=== PATIENT | male | born 1985 | race Caucasian/White ===

== ENCOUNTER 2018-11-27 15:28 | Emergency (ER) | payer MEDICAID ==
[~2018-11-27] VITALS: Ht 177.8 cm; Wt 78.0 kg
[2018-11-27 15:28] VITALS: BP_SYST 149
--- NOTE | 2018-11-27 15:30 | NUR ---
BROUGHT BACK TO BED #4 AND TRIAGED. REPORT GIVEN TO BJ
--- NOTE | 2018-11-27 15:55 | NUR ---
patient arrived Aox[facility] from home with c/o pounding MYRICK x 5 days. patient states he has a high blood pressure and feels like he needs to relax more. 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 patient no other medical history provided. no other complaint or injury at this time.
--- NOTE | 2018-11-27 16:00 | NUR ---
patients labs were drawn.
--- NOTE | 2018-11-27 16:00 | NUR ---
ER at bedside examining patient.
[2018-11-27 17:10] LABS: HEMATOCRIT 48.7 % (36-54); HEMOGLOBIN 16.7 g/dL (14.0-18.0); LYMPHOCYTES % (AUTO) 35.3 % (20.5-51.5); MEAN CORPUSCULAR HEMOGLOBIN 30 pg (27-31); MEAN CORPUSCULAR HGB CONC 34 % (32-36); MEAN CORPUSCULAR VOLUME 87 fL (79.0-98.0); NEUTROPHILS % (AUTO) 54.7 % (40.0-70.0); PLATELET COUNT (AUTO) 241 K/uL (130-430); RED BLOOD CELL COUNT(AUTO) 5.63 MIL/uL (4.2-6.2); RED CELL DISTRIBUTION WIDTH 13.3 % (9.0-15.0); WHITE BLOOD COUNT (AUTO) 7.3 K/uL (4.8-10.8)
[2018-11-27 17:11] LABS: BASOPHILS % (AUTO) 0.2 % (0.0-2.0); EOSINOPHILS # (AUTO) 0.1 K/uL (0.0-0.4); EOSINOPHILS % (AUTO) 1.3 % (0.0-4.0); LYMPHOCYTES # (AUTO) 2.6 K/uL (1.0-5.5); MONOCYTES # (AUTO) 0.6 K/uL (0.0-1.0); MONOCYTES % (AUTO) 8.5 % (1.7-9.3)
[2018-11-27 17:29] LABS: CALCIUM 8.8 mg/dL (8.4-11.0); CREATININE 0.87 mg/dL (0.55-1.30); POTASSIUM 3.7 mmol/L (3.5-5.1)
[2018-11-27 17:33] LABS: ALBUMIN 4.1 g/dL (3.4-4.8); TOTAL BILIRUBIN 0.7 mg/dL (0.0-1.0)
[2018-11-27 17:35] LABS: PROTHROMBIN TIME 10.4 SECS (9.5-12.5)
[2018-11-27 17:55] VITALS: BP_SYST 131
--- NOTE | 2018-11-27 17:56 | NUR ---
Patient given written and verbal discharge instructions and verbalizes understanding. ER MD discussed with patient the results and treatment provided. Patient in stable condition. ID arm band removed Rx of NONE given. Patient educated on pain management and to follow up with PMD. Pain Scale 0/10. Opportunity for questions provided and answered. Medication side effect fact sheet provided.
== END 2018-11-27 17:56 | disposition home or self-care (01) ==
LOC: SED 15:28
DX: I10 Essential (primary) hypertension (principal); R51 Headache; F41.9 Anxiety disorder, unspecified
CPT/HCPCS: 36415; 80053; 80061; 82550-TC; 83880; 84484; 85025; 85610-TC; 85730-TC; 99283